=== PATIENT | female | born 1990 | race Two or more races ===

== ENCOUNTER 2020-04-10 11:01 | Outpatient (REF) | payer OTHER, SELFPAY ==
--- NOTE | 2020-04-10 11:05 | US_ITS ---
EXAMINATION: US PELVIS COMPLETE CLINICAL INFORMATION: Pain. COMPARISON: None TECHNIQUE: Transabdominal and transvaginal ultrasound of the pelvis is performed. FINDINGS: On transabdominal ultrasound, the uterus is anteverted measuring 9.5 cm in length, 3.8 cm in AP and 5.5 cm wide. The endometrial thickness is 0.4 cm. Right ovary measures 2.9 x 1.8 x 1.8 cm and volume 4.9 mL. Previously, it measured 2.3 x 1.6 x 2.2 cm. The ovary is unremarkable. Left ovary measures 3.5 x 2.2 x 2.0 cm and volume 8.0 mL. Previously, it measured 3.0 x 1.4 x 3.1 cm. The ovary is unremarkable. There is no free fluid in cul-de-sac. US/US transvaginal IMPRESSION: Unremarkable pelvic ultrasound.
--- NOTE | 2020-04-10 11:05 | US_ITS ---
EXAMINATION: US PELVIS COMPLETE CLINICAL INFORMATION: Pain. COMPARISON: None TECHNIQUE: Transabdominal and transvaginal ultrasound of the pelvis is performed. FINDINGS: On transabdominal ultrasound, the uterus is anteverted measuring 9.5 cm in length, 3.8 cm in AP and 5.5 cm wide. The endometrial thickness is 0.4 cm. Right ovary measures 2.9 x 1.8 x 1.8 cm and volume 4.9 mL. Previously, it measured 2.3 x 1.6 x 2.2 cm. The ovary is unremarkable. Left ovary measures 3.5 x 2.2 x 2.0 cm and volume 8.0 mL. Previously, it measured 3.0 x 1.4 x 3.1 cm. The ovary is unremarkable. There is no free fluid in cul-de-sac. US/US pelvic complete IMPRESSION: Unremarkable pelvic ultrasound.
== END 2020-04-10 11:02 | disposition home or self-care (01) ==
LOC: HO.US 11:01
PROVIDERS: Visit Provider Obstetrics & Gynecology
DX: N83.209 Unspecified ovarian cyst, unspecified side (principal)
CPT/HCPCS: 76830; 76856

== ENCOUNTER → 2020-04-24 15:45 | Outpatient (BNVA) | payer OTHER, SELFPAY | PROVIDERS: PCP Internal Medicine; Visit Provider Obstetrics & Gynecology | DX: R31.29 Other microscopic hematuria (principal); N83.209 Unspecified ovarian cyst, unspecified side | CPT/HCPCS: 99212 ==

== ENCOUNTER 2020-06-28 08:24 | Outpatient (REF) | payer OTHER, SELFPAY ==
[2020-06-30 07:51] LABS: C. trachomatis RNA TMA NOT DETECTED (NOT DETECTED); N. gonorrhoeae RNA TMA NOT DETECTED (NOT DETECTED)
[2020-07-04 11:33] LABS: HPV mRNA E6/E7 Detected (Not Detected)
[2020-07-12 10:27] LABS: HPV 16 RNA NOT DETECTED
== END 2020-06-28 08:25 | disposition home or self-care (01) ==
LOC: HO.LAB 08:24
PROVIDERS: PCP Internal Medicine Sports Medicine; Visit Provider Obstetrics & Gynecology
DX: Z01.419 Encounter for gynecological examination (general) (routine) without abnormal findings (principal); N39.41 Urge incontinence; R35.0 Frequency of micturition
CPT/HCPCS: 36415; 87491; 87591; 87624; 87625; 88141; 88142

== ENCOUNTER → 2020-07-05 13:20 | Outpatient (BNVA) | payer OTHER, SELFPAY | PROVIDERS: Visit Provider Obstetrics & Gynecology | DX: Z76.89 Persons encountering health services in other specified circumstances (principal) ==

== ENCOUNTER 2020-07-11 10:08 | Outpatient (REF) | payer OTHER, SELFPAY | END 2020-07-11 10:09 | disposition home or self-care (01) | LOC: HO.LAB 10:08 | PROVIDERS: Visit Provider Obstetrics & Gynecology | DX: N87.1 Moderate cervical dysplasia (principal); E88.49 Other mitochondrial metabolism disorders | CPT/HCPCS: 57454; 88305; 88341; 88342; 88360 ==

== ENCOUNTER → 2020-07-25 09:22 | Outpatient (BNVA) | payer OTHER, SELFPAY | PROVIDERS: Visit Provider Obstetrics & Gynecology ==

== ENCOUNTER → 2020-08-23 11:41 | Outpatient (BNVA) | payer OTHER, SELFPAY | PROVIDERS: Visit Provider Obstetrics & Gynecology | DX: N87.1 Moderate cervical dysplasia (principal) | CPT/HCPCS: 99212 ==

== ENCOUNTER 2020-09-01 08:36 | Day surgery (SDC) | payer OTHER, SELFPAY ==
[2020-08-31 09:11] VITALS: BMI 25.2
--- NOTE | 2020-08-31 09:37 | P.CONAN_ITS ---
Documented by User: Sonali Richardson 08/31/20 09:37 HPI - Anesthesia Eval Consult details Narrative: 30yo F for Cone LEEP [facility] Active Problems Active Problems: All Active Problems (Updated 08/25/20 @ 14:25 by Laura Mcnamara) Hx of ovarian cyst (Acute) Ovarian cyst (Acute) Microscopic hematuria (Acute) Well woman exam (Acute) Family planning (Acute) Incontinence of urine (Acute) Bacterial vaginosis (Acute) ASCUS with positive high risk HPV (Acute) ASCUS with positive high risk HPV cervical (Acute) Well woman exam (Acute) DARCY II (cervical intraepithelial neoplasia II) (Acute) Past Medical History Medical History ASCUS with positive high risk HPV History of ovarian cyst Migraines Family History Family History Father Heart problem Hypertension Social History Social History Alcohol intake: never Smoking Status: Never smoker Use of substances other than those prescribed or required for medical reasons: No Have you been hit, kicked, punched, or otherwise hurt by someone within the past year? If so, by whom?: No Advance Directives: No Advance Directives Information Provided: Yes Meds Allergies Allergy/AdvReac Type Severity Reaction Status Date / Time latex Allergy Rash Verified 08/25/20 14:24 Exam Exam Date and Time: August 31, 2020 0937 Height,Weight and Vital Signs: Height 5 ft 5 in Weight 68.663 kg Assessment and Plan Assessment Anesthesia Assessment: Chart Reviewed Documented by User: Lynda Barber 09/01/20 09:40 [facility] Past Medical History Medical History ASCUS with positive high risk HPV History of ovarian cyst Migraines Family History Family History Father Heart problem Hypertension Social History Social History Alcohol intake: never Smoking Status: Never smoker Use of substances other than those prescribed or required for medical reasons: No Have you been hit, kicked, punched, or otherwise hurt by someone within the past year? If so, by whom?: No Advance Directives: No Advance Directives Information Provided: Yes Meds Allergies Allergy/AdvReac Type Severity Reaction Status Date / Time latex Allergy Rash Verified 08/25/20 14:24 Exam Airway Mallampati Class: I TM Dist: >3cm Loose/Missing/Broken Teeth: No Heart: RRR Lungs: CTA Assessment and Plan Assessment Anesthesia Assessment: Anesthesia Plan Discussed and Chart Reviewed Final Anesthetic Review NPO: Yes ASA Class: II Final Preanesthetic Review: Meds/Allgs Chart Reviewed, Consent Obtained/Reviewed and Anes Risks/Benef Reviewed Patient Risk: Low Procedure Risk: Low Anesthetic Plan Anesthetic Plan: GA Disposition: Standard PACU
[2020-09-01 08:52] VITALS: BP 108/77; PULSE 97; RESP 18; TEMP 37.1; O2SAT 98
[2020-09-01 08:57] LABS: UPreg QC Valid YES; Urine Pregnancy NEGATIVE (NEGATIVE)
[2020-09-01] MEDS: Lactated Ringers 1,000 ML 100 ML IVCONT (09:12)
--- NOTE | 2020-09-01 09:41 | MHC.SHP ---
Pre-Procedural Eval Section A The patient is an INPATIENT: No Changes since office visit: No Cold of Flu in the past 2 weeks, No New Medical Problems, No Changes in Medication and No Patient answered all questions The History & Physical has been completed within 30 days and I have reviewed it.: Yes Section B Chief Complaint: CIN2 Allergies: Allergies Allergy/AdvReac Type Severity Reaction Status Date / Time latex Allergy Rash Verified 08/25/20 14:24 Plan Diagnosis/Plan: Unchanged I have reviewed the history and physical and performed a pertinent physical examination on my patient. No changes have occurred unless specified.
--- NOTE | 2020-09-01 10:30 | W.PM.OPN ---
Operative Note Operative Note Date of Service: 05/19/20 Narrative: Preop diagnosis: DARCY 2 with + ECC Operation: LEEP Cone with post cone ECC Post op diagnosis: same Anesthesia: paracervical block Complications: none Pathology: Anterior and Posterior cervical lip with endocervix & post cone RCC QBL: minimal Procedure: The patient was put in the dorsal lithotomy position, was prepped and draped in the usual sterile fashion. A sterile speculum was inserted inside the patient vagina. Using Lugol solution the cervix with Dyed with Lugol solution to identifiy the abnormal demarcating line. 10 cc of Marcaine0.5% with epinephrine were given at 2,4 , 8, and 10 o'clock. Using a medium-size loop wire, the anterior cervical lip was excised followed by the posterior cervical lip and endocervix, post cone ECC was done afterwards. Hemostasis was assured using cautery and Monsel solution. All instruments were taken out of the patient's vaginal cavity. the patient tolerated the procedure well and was discharged home with the following instructions: call if temperature is above 100.4, vaginal bleeding, abdominal pain or nausea or vomiting. Follow-up in the office in 2 weeks for postop visit
--- NOTE | 2020-09-01 10:31 | PM.OP ---
Brief Operative Note Date of Service: 05/19/20 Pre-op diagnosis: DARCY 2 on ECC Post-op diagnosis: same Procedure: LEEP CONE with post CONE ECC Surgeon: Cliff Medina MD Anesthesia: local and other (Paracervical block) Estimated blood loss (mL): 0 Pathology: other (Cervical cone, Endocx, Post cone ECC) Condition: stable Disposition: other (Home)
[2020-09-01 10:38] VITALS: BP 135/67; PULSE 85; RESP 12; TEMP 36.4; O2SAT 98
[2020-09-01 10:43] VITALS: BP 125/67; PULSE 100; RESP 16; O2SAT 99
[2020-09-01 10:48] VITALS: BP 131/59; PULSE 114; RESP 20; O2SAT 98
[2020-09-01 10:53] VITALS: BP 135/67; PULSE 102; RESP 16; O2SAT 99
[2020-09-01] MEDS: Acetaminophen 325 MG TABLET 650 MG PO (11:04)
[2020-09-01 11:08] VITALS: BP 124/66; PULSE 92; RESP 16; TEMP 36.2; O2SAT 99
== END 2020-09-01 11:35 ==
LOC: HO.SSS 08:37
PROVIDERS: Nurse Practitioner; Visit Provider Obstetrics & Gynecology
PROC: 0UBC7ZZ Excision of Cervix, Via Natural or Artificial Opening (ICD-10-PCS; CPT 57522; principal; 2020-09-01 10:50)
DX: N87.0 Mild cervical dysplasia (principal)
CPT/HCPCS: 57522; 81025; 88305; 88307; 88342; 88360; J1100; J2250; J2405; J3010

== ENCOUNTER → 2020-09-05 10:21 | Outpatient (BNVA) | payer OTHER, SELFPAY | PROVIDERS: Visit Provider Obstetrics & Gynecology | DX: N76.0 Acute vaginitis (principal); B96.89 Other specified bacterial agents as the cause of diseases classified elsewhere | CPT/HCPCS: 99212 ==

== ENCOUNTER → 2020-09-14 10:14 | Outpatient (BNVA) | payer OTHER, SELFPAY | PROVIDERS: Visit Provider Obstetrics & Gynecology ==

== ENCOUNTER 2020-10-09 15:03 | Outpatient (REF) | payer OTHER, SELFPAY ==
--- NOTE | ~2020-10-09 | MR_ITS ---
EXAMINATION: MR BRAIN WITHOUT CONTRAST CLINICAL INFORMATION: Migraine without aura. COMPARISON: None. TECHNIQUE: Multiplanar, multisequence imaging of the brain was performed without contrast. FINDINGS: No diffusion abnormalities are identified to suggest an acute or subacute infarct. The ventricles are normal in size. No mass effect or midline shift is seen. No brain parenchymal signal abnormality is noted. No extra-axial fluid collections are seen. The brainstem and cerebellum are normal. The gradient refocused acquisition demonstrates no pathologic magnetic susceptibility artifact to indicate underlying acute or chronic blood products. The craniovertebral junction, marrow signal, and midline structures are normal. The major intracranial flow voids at the level of the kashia of Sanchez are preserved. The dural venous sinus flow voids are maintained. The mastoid air cells and paranasal sinuses are well aerated. MR/MR head/brain wo con IMPRESSION: MRI of the brain. No acute process.
== END 2020-10-09 15:04 | disposition home or self-care (01) ==
LOC: HO.MRI 15:03
PROVIDERS: Visit Provider Psychiatry & Neurology Neurology
DX: G43.009 Migraine without aura, not intractable, without status migrainosus (principal)
CPT/HCPCS: 70551

== ENCOUNTER 2021-03-28 10:42 | Outpatient (REF) | payer OTHER, SELFPAY ==
[2021-03-31 01:36] LABS: HPV mRNA E6/E7 rflx Not Detected (Not Detected)
== END 2021-03-28 10:43 | disposition home or self-care (01) ==
LOC: HO.LAB 10:42
PROVIDERS: Visit Provider Obstetrics & Gynecology
DX: N87.1 Moderate cervical dysplasia (principal)
CPT/HCPCS: 87624; 88142; 99212

== ENCOUNTER 2022-02-07 11:50 | Outpatient (REF) | payer OTHER, SELFPAY ==
[2022-02-07 13:23] LABS: Hematocrit 32.6 % (37.0-47.0); Hemoglobin 10.5 g/dl (12.0-16.0); Mean Corpuscular HGB Conc 32.2 g/dl (31.0-35.0); Mean Corpuscular Hemoglobin 21.4 pg (27.0-33.0); Mean Corpuscular Volume 66.4 fL (80.0-98.0); Mean Platelet Volume 11.8 fL (9.4-12.3); Platelet Count 351 X10*3/uL (160-400); Red Blood Count 4.91 X10*6/uL (4.20-5.50); Red Cell Distribution Width 15.2 % (11.0-16.0)
[2022-02-07 14:15] LABS: HCG Quantitative < 2 mIU/mL; TSH reflex Free T4 0.73 uIU/mL (0.32-4.0)
[2022-02-07 17:04] LABS: CT PCR NOT DETECTED (Not Detect.); NG PCR NOT DETECTED (Not Detect.)
== END 2022-02-07 11:51 | disposition home or self-care (01) ==
LOC: HO.LAB 11:50
PROVIDERS: Visit Provider Obstetrics & Gynecology
DX: Z11.3 Encounter for screening for infections with a predominantly sexual mode of transmission (principal); N93.9 Abnormal uterine and vaginal bleeding, unspecified
CPT/HCPCS: 36415; 81025; 84443; 84702; 85027; 87491; 87591; 99212

== ENCOUNTER 2022-04-01 15:52 | Outpatient (REF) | payer OTHER, SELFPAY ==
--- NOTE | ~2022-04-01 | US_ITS ---
EXAMINATION: US PELVIS CLINICAL INFORMATION: Abnormal bleeding COMPARISON: Previous pelvic ultrasound April 2020 TECHNIQUE: Ultrasound of the pelvis is performed using both transabdominal and transvaginal transducers along with Doppler. Transvaginal imaging is performed due to inadequate visualization transabdominally. FINDINGS: The uterus is anteverted and measures 8.3 x 4.7 x 6.1 cm in dimension. No focal uterine lesion is seen. Endometrial thickness is normal measuring 1.4 cm. There are small nabothian cysts in the cervix. The right ovary measures 2.9 x 1.8 x 1.8 cm and is normal-appearing. The left ovary measures 3.8 x 3.1 x 3 cm. There is a 2.7 x 2.2 x 2.5 cm simple left ovarian cyst. There is no fluid in the pelvis. There are prominent bilateral pelvic vessels suggestive of pelvic congestion. US/US pelvic and transvaginal IMPRESSION: 2.7 x 2.2 x 2.5 cm simple left ovarian cyst. Prominent pelvic vessels suggestive of pelvic congestion.
== END 2022-04-01 15:53 | disposition home or self-care (01) ==
LOC: HO.US 15:52
PROVIDERS: Visit Provider Obstetrics & Gynecology
DX: N93.9 Abnormal uterine and vaginal bleeding, unspecified (principal)
CPT/HCPCS: 76830; 76856

== ENCOUNTER 2025-02-21 09:41 | Outpatient (REF) | payer OTHER, SELFPAY ==
[2025-02-21 10:41] LABS: MANUAL DIFF FLAG NO
[2025-02-21 10:44] LABS: Hematocrit 32.3 % (37.0-47.0); Hemoglobin 10.2 g/dl (12.0-16.0); Imm Gran Abs Auto 0.05 X10*3/uL (0.00-0.03); Imm Gran Pct Auto 0.5 % (0.0-0.4); Lymphocytes Absolute Auto 3.3 X10*3/uL (1.2-4.9); Mean Corpuscular HGB Conc 31.6 g/dl (31.0-35.0); Mean Corpuscular Hemoglobin 20.4 pg (27.0-33.0); NRBC Abs Auto 0.000 X10*3/uL (0.0-0.012); NRBC Pct Auto 0.0 /100WBC (0.0-0.2); Platelet Count 402 X10*3/uL (160-400); Red Blood Count 4.99 X10*6/uL (4.20-5.50); White Blood Count 10.9 X10*3/uL (4.8-10.8)
[2025-02-21 10:45] LABS: Mean Corpuscular Volume 64.7 fL (80.0-98.0)
[2025-02-21 11:24] LABS: Ferritin 53 ng/mL (10-122); Thyroid Stimulating Hormone 0.55 uIU/mL (0.32-4.0)
[2025-02-21 11:39] LABS: Alanine Aminotransferase 16 U/L (0-31); Albumin Level 4.4 g/dL (3.5-5.0); Alkaline Phosphatase 53 U/L (39-117); Anion Gap 11 (12-20); Aspartate Amino Transferase 17 U/L (5-31); Blood Urea Nitrogen 16 mg/dL (9-16); Calcium 8.9 mg/dL (8.4-10.2); Carbon Dioxide 29 mmol/L (22-29); Chloride 106 mmol/L (96-108); Cholesterol 160 mg/dL (<200); Estimated Glomerular Filt Rate > 60; HDL Cholesterol 48 mg/dL (>40); Potassium 3.7 mmol/L (3.3-5.1); Sodium 142 mmol/L (135-145); Total Protein 7.0 g/dL (6.5-8.0); Triglycerides 67 mg/dL (<150)
--- OUTSIDE RECORDS SUMMARY | 2025-02-21 11:52 | XMS_ITS ---
Author Name [facility] Organization Unknown Encounters Encounter Type Encounter Reason Primary Diagnosis Location Date Ambulatory Contact with and (suspected) exposure to covid-19 [facility] 06/15/2021 Care Team Organization Name Specialty Phone Email Start Date End Da delisa [facility] 06/15/2021 01/26/2024 [facility] 06/15/2021 06/15/2021
--- OUTSIDE RECORDS SUMMARY | 2025-02-21 11:52 | XMS_ITS | Clinical Summary ---
Author Organization [facility] Address [address] [place] [address] Care Team Providers Care Celery Stripper Name Role Phone Unavailable Primary Care Provider Unavailabl e Allergies No known active allergies Medications No known medications Active Problems No known active problems Social History Tobacco Use Types Packs/Day Years Used Date Smoking Tobacco: Never Assessed Comments Unknown Sex and Gender Information Value Date Recorded Sex Assigned at Not on file Legal Sex Female 9:15 AM EST Gender Identity Not on file Sexual Orientation Not on file Last Filed Vital Signs Vital Sign Reading Time Taken Comments Blood Pressure 112/75 06/15/2021 9:23 AM EST Pulse 95 06/15/2021 9:23 AM EST Temperature 37.6 C (99.7 F) 06/15/2021 9:23 AM EST Respiratory Rate - - Oxygen Saturation 98% 06/15/2021 9:23 AM EST Inhaled Oxygen Concentration - - Weight 68 kg (150 lb) 06/15/2021 9:23 AM EST Height 165.1 cm (5' 5 ) 06/15/2021 9:23 AM EST Body Mass Index 24.96 06/15/2021 9:23 AM EST Plan of Treatment Health Maintenance Due Date Last Done Comments Hepatitis C Virus Screening 1990 HIV Screening 2003 DTaP/Tdap/Td Vaccines (1 - Tdap) 2009 Hepatitis B Vaccines (1 of 3 - 19+ 3-dose series) 2009 Pap Smear (Ages 21-65) 2011 HPV Vaccines (1 - 3-dose SCD M series) 2017 Influenza Vaccine 01/07/2025 COVID-19 Vaccine ( - 2023-2 5 season) 2025 Pneumococcal Vaccine: Pediat malcom (0-5 Years) and At-Risk Patients (6 to 49 Years) Aged Out No longer eligible b ased on patient's age to complete [place] [id number] [facility]
--- OUTSIDE RECORDS SUMMARY | 2025-02-21 11:52 | XMS_ITS | Patient Health Record ---
Author Organization [facility] Address [address] [place] [id number] Care Team Providers Care Bankruptcy Assistant Name Role Phone GERARDOAnali JULIANNA Unavailable [phone] DALIA BONDS Unavailable [phone] Allergies No Known Allergies Results Component Value Reference Range Flag Notes APTIMA COMBO 2 CT/NG, Urine Reviewed date:03/26/2024 03:41:26 PM Interpretation:Negative Performing Lab:[facility], [facility], [place], [address] Dominick Chaparro DO Notes/Report: GONORRHEA, AMPLIFIED NEGATIVE NEGATIVE N CHLAMYDIA, AMPLIFIED NEGATIVE NEGATIVE N DNA Test Results SEX: F : 1990 AGE: 34 [id number] CLINIC ID: [id number] SS: PHYSICIAN: DALIA BONDS [facility] COLLECTED BY: [id number] Specimen Source: Urine Specimen Type: Urine, Michael PCR Medium Neisseria gonorrhoeae: NEGATIVE Normal Value: Negative Chlamydia trachomatis: NEGATIVE Normal Value: Negative Wet Mount Reviewed date:03/10/2024 11:13:10 AM Interpretation:Yeast buds Performing Lab: Notes/Report: Yeast buds Clue Cells neg WBC scant Hyphae few buds Trichomonas neg pH 4.5 KARLIE Prep neg whiff Test, Urine Reviewed date:05/05/2024 11:43:13 AM Interpretation:Negative Performing Lab: Notes/Report: Negative Test, Urine neg Lot # [id number] Exp. Date Urinalysis Reviewed date:05/10/2024 12:54:44 PM Interpretation:blood otherwise normal Performing Lab: Notes/Report: blood otherwise normal Leukocytes - Nitrates - Uro 0.2 Protein - pH 6.0 Blood 10 Spec Clarkson 1.025 Ketones - Bilirubin - Glucose - THINPREP PAP TEST, Cervix Reviewed date:06/04/2024 03:42:37 PM Interpretation:NORMAL, BV SHIFT Performing Lab:[facility], [employer], [place], [address] Dominick Chaparro DO Notes/Report: THINPREP PAP TEST NEGATIVE/BACTERIAL VAGINOSIS NEGATIVE A -- THIN PREP PAP TEST -- SEX: F : 1990 AGE: 34 [id number] CLINIC ID: [id number] SS: PHYSICIAN: DALIA BONDS CNM COLLECTED BY: Negative for Intraepithelial Lesion or Malignancy Additional Findings: Endocervical Material Present Shift in Vaginal Sima Suggestive of Bacterial Vaginosis Specimen Adequacy: Satisfactory for Evaluation Clinical Note: HPV [id number] Encounter for gynecological examination (general) (routine) without abnormal [id number] Encounter for screening for human papillomavirus (HPV), [facility] 04-09-2024 Specimen Source: Cervix Visit Type: Routine Performed by: JOSELITO Stevens (ASCP) (Electronic Signature 05/10/2024 18:52) HPV HIGH RISK, Cervix Reviewed date:05/12/2024 02:49:06 PM Interpretation:Negative Performing Lab:[facility], [employer], [place], [address] Dominick Chaparro DO Notes/Report: HPV HIGH RISK NEGATIVE NEGATIVE N HPV High Risk DNA Probe Assay SEX: F : 1990 AGE: 34 [id number] CLINIC ID: [id number] SS: PHYSICIAN: DALIA BONDS CNM COLLECTED BY: Specimen Source: Cervix Specimen Type: ThinPrep Pap Correlating Pap: [id number] Additional High Risk Subtypes* NEGATIVE * Includes 31,33,35,39,45,51,52,56, 58,59,66,68 Subtype 16 NEGATIVE Subtype 18 NEGATIVE Wet Mount Reviewed date:05/05/2024 12:50:16 PM Interpretation:BV positive Performing Lab: Notes/Report: BV positive Clue Cells pos WBC neg Hyphae neg Trichomonas neg pH 5.5 KARLIE Prep faint pos Wet Mount Reviewed date:07/07/2024 11:26:45 AM Interpretation:few yeast buds Performing Lab: Notes/Report: few yeast buds Clue Cells neg WBC scant Hyphae few buds Trichomonas neg pH 4.5 KARLIE Prep neg whiff Test, Urine Reviewed date:07/30/2024 02:19:40 PM Interpretation:Negative Performing Lab: Notes/Report: Negative Test, Urine Negative Lot # [id number] Exp. Date 03/01/25 Urinalysis Reviewed date:08/02/2024 01:42:28 PM Interpretation:Normal Performing Lab: Notes/Report: Normal Leukocytes - Nitrates - Uro 0.2 Protein - pH 6.0 Blood - Spec Clarkson 1.015 Ketones - Bilirubin - Glucose - Wet Mount Reviewed date:07/30/2024 02:43:49 PM Interpretation:Normal Performing Lab: Notes/Report: Normal Clue Cells neg WBC scant Hyphae neg Trichomonas neg pH 4.5 KARLIE Prep neg whiff Reason For Referral No Information Medications Medication SIG (Take, Route, Frequency, Duration) Notes Start Date End Date Status Terconazole 0.4 % Cream 1 application at bedtime Vaginal Once a day; Duration: 7 day(s) 07/07/2024 Active Mometasone Furoate 0.1 % Cream 1 application Externally Once a day; Duration: 14 days 07/30/2024 Active Social History Sex Assigned At : Social History Observation Description Sex Assigned At Female Social History HIV Risk Assessment Social Info Question Answer Notes Additional Questions Is an HIV Risk Assessment being c onducted? Yes Have you been tested for HIV before? No Reproductive Life Plan: Social Info Question Answer Notes Reproductive Life Plan: Do you want to have children? Not sure Human Trafficking: Social Info Question Answer Notes Human Trafficking Experienced: No PrEP for HIV: Social Info Question Answer Notes PrEP for HIV Is the client intere sted in beginning/continuing PrEP for HIV? No Sexual History: Social Info Question Answer Notes Sexual History: Sexual History Reviewed: Partner s, Practices, Protection/Past STIs Currently sexually active? Yes Sexually active with: Men Your sexual activities include: vaginal intercourse Do you use condoms? No Date of last unprotected intercourse: 06/02/2024 Number of partners in past 3 months: 1 Number of partners in past year: 1 Does your partner(s) currently have any STIs? No Counseling Provided: Social Info Question Answer Notes Counseling Provided Please indicate the length of time, in minutes, that counseling was provided. 7 Counseling Was Provided By: fred Drugs/Alcohol: Social Info Question Answer Notes Drug/Alcohol Use Do you or have you used drugs? No Do you or have you used alcohol? Yes, currently Socially Food Access: Social Info Question Answer Notes Food Access The Client's current access to food is Secure Food Access Relationships: Social Info Question Answer Notes Relationships Has the client experienced any of the following: Client has never experienced harmful relationships Housing Social Info Question Answer Notes Housing The client's current living situation is: stable housing Tobacco Use: Social Info Question Answer Notes Tobacco Use: Do you/have you used tobacco? No Client uses hookah with tobacoo socially Tobacco Smoking Status Current some day smoker Section Notes: Aptima Aptima Vital Signs Blood pressure diastolic 78 mm Hg 07/30/2024 Height 5'5 in 07/30/2024 Blood pressure systolic 122 mm Hg 07/30/2024 Weight 164 lbs 07/30/2024 BMI 27.29 kg/m2 07/30/2024 Encounters Encounter Location Date Provider Diagnosis [address] [id number] 03/10/2024 DALIA BONDS Encounter for screen ing for infections with a predominantly sexual mode of transmission Z11.3 ; Acute candidiasis of vulva and vagina B37.31 and Other problems related to lifestyle Z72.[address] [id number] 05/05/2024 DALIA BONDS Encounter for gynecological examination (general) (routine) without abnormal findings Z01.419 ; Dysuria R30.0 ; Encounter for test, result negative Z32.02 ; Encounter for screening for human papillomavirus (HPV) Z11.51 and [facility] [id number] [facility] DALIA BONDS Acute candidiasis of vulva and vagina B37.31 [facility] [id number] 07/30/2024 DALIA BONDS Urinary frequency R3 5.0 ; Acute vaginitis N76.0 and Encounter for test, result negative Z32.[address] [facility] [id number] 05/12/2024 [facility] [id number] 05/31/[facility]24 [facility]UL[facility]NA GABAI [facility] [id number] 07/28/2024 DALIA BONDS Assessments Encounter Date Diagnosis (ICD Code) Assessment Notes Treatment Notes Treatment Clinical Notes Section Notes 03/10/2024 Encounter for screening for infections with a predominantly sexual mode of transmission (ICD-10 - Z11.3) Discussed STI risks, screenings that are available through [facility] and safe sex. Clt aware of lab processing times and how to view results on portal and how positive results will be communicated Need 2 out of 3 Sections from A-C Section A) Problems (only need one from below) One acute or uncomplicated illness/injury Section B) Data (at least one of the following categories in this section) Category 1: (Choose 2 of the following): Order unique tests Section C) Risk Document low risk of morbidity/morta lity 03/10/2024 Acute candidiasis of vulva and vagina (ICD-10 - B37.31) Reviewed few yeast buds on wet mount and treatment options. Advised to try cotton leggings and underwear instead of synthetic as well as avoid soaps directly to genitals. Return to the clinic for pelvic exam if symptoms not relieved by treatment. GoodRx coupon given- reviewed pricing for here vs pharmacy Need 2 out of 3 Sections from A-C Section A) Problems (only need one from below) One acute or uncomplicated illness/injury Section B) Data (at least one of the following categories in this section) Category 1: (Choose 2 of the following): Order unique tests Section C) Risk Document low risk of morbidity/morta lity 05/05/2024 Encounter for gynecological examination (general) (routine) without abnormal findings (ICD-10 - Z01.419) Discussed routine screenings and self breast/chest awareness. Clt to find out more about family hx around BR cancer and if any genetic screening done. Pap guidelines reviewed and pap collected. Will get pap/LEEP records for proper fu recommendations 05/05/2024 Dysuria (ICD-10 - R30.0) 07/07/2024 Acute candidiasis of vulva and vagina (ICD-10 - B37.31) Scant yeast buds on wet mount and mild irritation to outer R labia. Will do yeast tx. If symptoms not resolving with tx advised clt to return for further evaluation. Medication dispensed from in house stock. Lot number [id number], exp Spent 20 minutes doing the following: Chart Prep Obtaining/revmarli wing history Performing medically necessary exam Counseling/Coor dination of Care Documenting the visit Educating the patient Ordering medication/test /procedures Established Patient: [id number] 20 Minutes 07/30/2024 Acute vaginitis (ICD-10 - N76.0) Advised to stop current products in genital area. Can use steroid cream 1-2 x per day as needed. If still with symptoms suggest temporarily stopping pubic hair removal to see if any improvement in symptoms. RTC if symptoms not relieved. May need referral to derm or [facility]. Exam does not look consistent with LS. Spent 20 minutes doing the following: Chart Prep Obtaining/revie wing history Performing medically necessary exam Counseling/Coor dination of Care Documenting the visit Educating the patient Ordering medication/test /procedures Established Patient: [id number] 20 Minutes 07/30/2024 Urinary frequency (ICD-10 - R35.0) Spent 20 minutes doing the following: Chart Prep Obtaining/revie wing history Performing medically necessary exam Counseling/Coor dination of Care Documenting the visit Educating the patient Ordering medication/test /procedures Established Patient: [id number] 20 Minutes 05/05/2024 Encounter for test, result negative (ICD-10 - Z32.02) 07/30/2024 Encounter for test, result negative (ICD-10 - Z32.02) Spent 20 minutes doing the following: Chart Prep Obtaining/revie wing history Performing medically necessary exam Counseling/Coor dination of Care Documenting the visit Educating the patient Ordering medication/test /procedures Established Patient: [id number] 20 Minutes 03/10/2024 Other problems related to lifestyle (ICD-10 - Z72.89) Need 2 out of 3 Sections from A-C Section A) Problems (only need one from below) One acute or uncomplicated illness/injury Section B) Data (at least one of the following categories in this section) Category 1: (Choose 2 of the following): Order unique tests Section C) Risk Document low risk of morbidity/morta lity 05/05/2024 Encounter for screening for human papillomavirus (HPV) (ICD-10 - Z11.51) 05/05/2024 Acute vaginitis (ICD-10 - N76.0) Reviewed BV findings and treatment options. No sexual activity during treatment and condom/barrier use encouraged following for at least a month for prevention. Genital hygiene practices reviewed. Medication dispensed from in house stock: Lot number [id number], exp 03/10/2024 Other For annual in April Need 2 out of 3 Sections from A-C Section A) Problems (only need one from below) One acute or uncomplicated illness/injury Section B) Data (at least one of the following categories in this section) Category 1: (Choose 2 of the following): Order unique tests Section C) Risk Document low risk of morbidity/morta lity Plan Of Treatment No Information Insurance Providers Payer Name Payer Address Payer Phone Subscriber Number Group Number Insured Name Patient Relationship to Insured Coverage Start Date Coverage End Date [facility] - [id number] [address] [place] [id number] un fee cat 5 Yennifer Wallace Self - patient is the insured Medical (General) History Medical History History ICD Code Migraines BV Surgical History Surgery Date(Month/Year) Leep procedure - client unsure of year 2 021?
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
== END 2025-02-21 09:42 | disposition home or self-care (01) ==
LOC: HO.10HDL 09:41
PROVIDERS: Visit Provider Internal Medicine
DX: Z00.00 Encounter for general adult medical examination without abnormal findings (principal); Z13.6 Encounter for screening for cardiovascular disorders; D50.8 Other iron deficiency anemias; F41.0 Panic disorder [episodic paroxysmal anxiety]; G47.00 Insomnia, unspecified; M54.50 Low back pain, unspecified; Z86.001 Personal history of in-situ neoplasm of cervix uteri; Z82.49 Family history of ischemic heart disease and other diseases of the circulatory system
CPT/HCPCS: 36415; 80053; 80061; 82728; 84443; 85025